=== PATIENT | female | born 1945 | race Caucasian/White ===

== ENCOUNTER → 2018-09-19 | Outpatient (CLI) | payer MEDICARE, OTHER ==
[~2018-09-19] MED LIST: AMIT10TA PO; ASPI81TA45 PO; ATOR20TA PO; BENZ100C PO; BUDE9TAB PO; BUTA1CAP30 PO; CEFD300C37 PO; DIAZ5TAB PO; DICL100G19 TP; DOXY100T PO; ERGO500018 PO; ESTR0.6246 PO; HYDR-3237 PO; HYDR25TA6 PO; ISOS30TA8 PO; LACT1CAP24 PO; LIDO1ADH41 TP; MECL-85 PO; ONDA4TAB7 PO; POLY17PO5 PO; POTA20TA14 PO; TEMA15CA6 PO; TOPI25TA52 PO; TRAM50TA2 PO; ZOLP10TA PO
== END | disposition home or self-care (01) ==
LOC: CFH 08:46
PROVIDERS: ATTEND Internal Medicine Cardiovascular Disease
DX: I35.1 Nonrheumatic aortic (valve) insufficiency (principal); I10 Essential (primary) hypertension; I25.2 Old myocardial infarction; F17.210 Nicotine dependence, cigarettes, uncomplicated
CPT/HCPCS: 93306